=== PATIENT | female | born 1995 | race Two or more races ===

== ENCOUNTER 2018-05-05 09:19 | Emergency (ER) | payer OTHER ==
[~2018-05-05] VITALS: Ht 165.1 cm; Wt 79.8 kg
[2018-05-05 09:22] VITALS: BP 120/72
--- NOTE | 2018-05-05 10:00 | NUR ---
PT TAKEN TO CT
[2018-05-05] MEDS ORDERED: IBUPROFEN 600 MG TABLET PO ONE ×2 (12:30→12:46)
--- NOTE | 2018-05-05 12:57 | NUR ---
PT CLEARED FOR BOOKING, PT CT IS CLEAR, PT AMBULATORY WITH STEADY GAIT, GIVEN INSTRUCTIONS TO [employer] OFFICER.
== END 2018-05-05 12:59 ==
LOC: ER 09:20
DX: S09.8XXA Other specified injuries of head, initial encounter (principal); F07.81 Postconcussional syndrome; R51 Headache; Z98.890 Other specified postprocedural states; V49.49XA Driver injured in collision with other motor vehicles in traffic accident, initial encounter; Y93.89 Activity, other specified; Y92.410 Unspecified street and highway as the place of occurrence of the external cause; Y99.8 Other external cause status
CPT/HCPCS: 36415; 70450; 84702; 99284; A4606; Z7610